=== PATIENT | male | born 1970 | race Caucasian/White ===

== ENCOUNTER → 2023-01-18 | Outpatient (CLI) | payer BC ==
--- NOTE | 2023-01-18 11:44 | CA ---
Stress Echo Report Stef Roger Age: 53 Gender: M : 1970 Exam Date: 01/18/2023 10:31 Exam Location: [place] [facility] Ht (in): 71 Wt (lb): 180 Ordering Physician: Batool Fletcher DO Referring Physician: BATOOL FLETCHER,, Chief Scientist: Jennifer Tse [facility] Technologist Procedure CPT: Indication: Z82.49 family hx of cardiovascular disease ICD-9 Codes: Rhythm: Patient History: Family history of heart disease Cardiac Medications: Medications in past 24 hours: Contrast: Stress Results Protocol: Loki Total dose(mL): Exercise Duration (min:sec): 10:[address] Depression (mm): Angina Score: Riddle Score: METS: 11.7 Resting HR: 82 Resting BP: 116 / 85 Peak HR: 163 Peak BP: 165 / 80 Max Predicted HR: 168 97 % Max Predicted HR Target HR: 143 Double Product: [id number] Stress Summary: BP Response: Reason for Termination: Reached target heart rate or work-load Cardiac Symptoms: Test terminated after reaching target heart rate (85% max predicted) ECG Analysis Resting ECG: Normal sinus rhythm normal axis normal intervals Stress ECG: Patient exercised on Loki protocol for 10 minutes achieving 85% of predicted maximal heart rate without chest pain or diagnostic ST segment depression Arrhythmia: Echo Analysis Resting Echo: Normal left ventricular size wall motion systolic function Peak Echo Analysis: Normal hyperdynamic response was advanced myocardium noted MEASUREMENTS (Male/Female) Normal Values CONCLUSIONS Good exercise tolerance negative stress test by EKG criteria Negative stress echo Dr. Jermain Borden MD (Electronically Signed) Final Date: 18 January 2023 11:43
== END | disposition home or self-care (01) ==
LOC: RADNMMAIN 09:59 → EDSEX 10:00
PROVIDERS: ATTEND Family Medicine
DX: E11.65 Type 2 diabetes mellitus with hyperglycemia (principal); Z82.49 Family history of ischemic heart disease and other diseases of the circulatory system
CPT/HCPCS: 93351